=== PATIENT | male | born 1980 | race American Indian/Alaskan Native ===

== ENCOUNTER 2017-09-04 11:28 | Emergency (ER) | payer SELFPAY ==
--- NOTE | 2017-09-04 13:54 | Ultrasound Report ---
Scrotal ultrasound: Left testicular pain. The right testicle measures 2.3 x 2.9 x 4.2 cm. It is echogenically normal. The epididymis contains a small cyst but is otherwise unremarkable. There is normal vascular flow. There is a small hydrocele. Left testicle measures 2.9 x 2.8 x 4.2 cm. It is echogenically normal with normal vascular flow. The epididymis head is slightly enlarged but the tail is moderately enlarged. There is increased flow to the epididymis tail. There is a moderate volume of hydrocele fluid. Impressions: Left epididymitis.
[2017-09-04 17:03] LABS: Bilirubin,Urine NEG (Negative); Blood,Urine SM (Negative); Color,Urine Yellow (Yellow); Mucus,Urine 3+ /HPF
[2017-09-04 17:04] LABS: WBC,Urine > 182.0 /HPF (0.0-6.0)
[2017-09-04] MEDS ORDERED: XYLOCAINE 1% MPF 5 mL INFILTRATI ONE (21:20)
[2017-09-04] MEDS ORDERED: ROCEPHIN IM ONE (21:20)
[2017-09-04] MEDS ORDERED: ZITHROMAX PO ONE (21:20)
--- NOTE | 2017-09-04 21:28 | Emergency Department Report ---
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 He is here with persistent swelling to the left testis and tenderness of the epididymis was some possible dysuria and discharge. He denies headache he denies rash denies stiff neck denies any other complaints initially told the nurse he thought was trauma related but he is denying that now he thinks he more likely he first noticed it when he sat on no fever no complaints of chest pain no headache no stiff neck MD Complaint: testicle pain, testicle swelling -: Gradual Location: left testicle Severity: mild, moderate Severity scale (0 -10): 0 Quality: aching, burning Consistency: intermittent denies other symptoms, discharge, swelling. denies: mass, rash, urinary retention, blood in urine, dysuria, fever, nausea/vomiting, incontinence - Related Data Previous Rx's Medication Instructions Recorded Last Taken Type Ciprofloxacin HCl [Cipro] 500 mg PO BID #20 tablet 09/04/17 Unknown Rx Allergies Allergy/AdvReac Type Severity Reaction Status Date / Time No Known Allergies Allergy Unverified 09/04/17 12:48 ED Review of Systems ROS: Stated complaint: SWOLLEN TESTICLES Other details as noted in HPI Comment: All other systems reviewed and negative Constitutional: denies: diaphoresis, fever, malaise Eyes: denies: eye discharge, vision change ENT: denies: dental pain, hearing loss, epistaxis Respiratory: denies: shortness of breath, SOB with exertion, SOB at rest, stridor Cardiovascular: denies: edema, syncope, paroxysmal nocturnal dyspnea Gastrointestinal: denies: abdominal pain, nausea, vomiting, diarrhea, constipation, hematemesis, melena, hematochezia Genitourinary: discharge, testicular pain, testicular mass Musculoskeletal: denies: joint swelling, arthralgia Skin: denies: change in color, change in hair/nails, pruritus Neurological: denies: numbness, paresthesias, confusion ED Past Medical Hx - Past Medical History Previous Medical History?: No - Surgical History Past Surgical History?: No - Social History Smoking Status: Current Every Day Smoker Substance Use Type: None - Medications Home Medications: Home Medications Medication Instructions Recorded Confirmed Last Taken Type Ciprofloxacin HCl [Cipro] 500 mg PO BID #20 tablet 09/04/17 Unknown Rx ED Physical Exam - General Limitations: No Limitations General appearance: alert, in no apparent distress, anxious, other (nontoxic) - Head Head exam: Present: atraumatic, normocephalic - Eye Eye exam: Present: PERRL, EOMI - ENT ENT exam: Present: normal exam, normal orophraynx - Neck Neck exam: Present: normal inspection. Absent: tenderness, meningismus - Respiratory Respiratory exam: Present: normal lung sounds bilaterally. Absent: respiratory distress, wheezes, rales, rhonchi, stridor, chest wall tenderness, accessory muscle use - Cardiovascular Cardiovascular Exam: Present: regular rate, normal rhythm - GI/Abdominal GI/Abdominal exam: Present: soft. Absent: distended, tenderness, guarding, rebound, rigid, mass, pulsatile mass - exam: Present: testicular tenderness, urethral discharge, scrotal swelling, circumcision - Extremities Exam Extremities exam: Present: normal inspection, normal capillary refill. Absent: pedal edema, joint swelling - Back Exam Back exam: Present: normal inspection. Absent: CVA tenderness (L) - Neurological Exam Neurological exam: Present: alert, oriented X3, CN II-XII intact. Absent: motor sensory deficit ED Course Vital Signs 09/04/17 09/04/17 09/04/17 12:22 12:38 20:45 Temperature 98.0 F 97.7 F Pulse Rate 78 77 67 Respiratory 16 Rate Blood Pressure 126/86 126/86 Blood Pressure 118/83 [Left] O2 Sat by Pulse 99 100 Oximetry 09/04/17 21:01 Temperature Pulse Rate Respiratory Rate Blood Pressure 118/83 Blood Pressure [Left] O2 Sat by Pulse 99 Oximetry ED Medical Decision Making - Radiology Data Radiology results: report reviewed - Medical Decision Making Patient was small hydrocele normal testicular flow with epididmitis on the left per ultrasound, urinalysis does have some white cells patient will be treated for epididymal orchitis he does have some swelling of the testicle but no evidence of torsion no evidence of trauma informed to have partners tested and see the health department for HIV and syphilis testing when he sees his regular doctor. He is nontoxic Stableout patient fu Critical care attestation.: If time is entered above; I have spent that time in minutes in the direct care of this critically ill patient, excluding procedure time. ED Disposition Clinical Impression: Epididymo-orchitis Disposition: TO HOME OR SELFCARE Is pt being admited?: No Condition: Stable Instructions: Epididymitis (ED) Additional Instructions: see your regular doctor or urologist return if new alarming symptoms have partners tested and treated you need an outpatient HIV and syphilis test. Her regular doctor Prescriptions: Ciprofloxacin HCl [Cipro] 500 mg PO BID #20 tablet Referrals: PRIMARY CARE, [Primary Care Provider] - 3-5 Days Forms: STI Treatment and Prevention Time of Disposition: 21:30
[2017-09-04 22:30] VITALS: BP 122/88
== END 2017-09-04 22:30 | disposition home or self-care (01) ==
LOC: ED 11:28
DX: N45.3 Epididymo-orchitis (principal); F17.200 Nicotine dependence, unspecified, uncomplicated
CPT/HCPCS: 81001; 93975; 96372; 99284; J0696